=== PATIENT | female | born 1970 | race Caucasian/White ===

== ENCOUNTER 2021-05-14 22:57 | Emergency (ER) | payer OTHER ==
[~2021-05-14] VITALS: Ht 175.3 cm; Wt 112.4 kg
[2021-05-14 23:12] VITALS: BP 139/80
--- NOTE | 2021-05-14 23:38 | PHYS DOC ---
Past History Additional Past Medical Histor: HNPP Past Surgical History: Hysterectomy, Other Additional Past Surgical Histo: BLADDER REPAIR; VAG RECTOCELE; LUMBAR DISECTOMY Adult General Chief Complaint Chief Complaint: DENTAL PROBLEM HPI HPI Patient is a 50-year-old female presenting for dental pain. She had root canal performed 48 hours ago at dentist office. She had uncontrolled pain and was seen the following day for this, she had a nerve block and further work done at that time but was never prescribed anything. She reports taking Tylenol only for pain since dentist discharge but reports pain has been unbearable prompting her to come in for evaluation today. She is concerned of active infection and concerned she was never given any antibiotic given her recent dental work. She has numerous comorbid conditions such as diabetes, GERD, obesity but denies any cardiovascular history. States her reason why she has not been taking ibuprofen as she just does not have any at home. Review of Systems Review of Systems Fourteen body systems of review of systems have been reviewed. See HPI for pertinent positives and negative responses, other bailey all other systems are negative, non-pertinent or non-contributory Allergies Allergies Allergies Coded Allergies Type Severity Reaction Last Updated Verified fluoxetine Allergy Severe suicidal 05/14/21 Yes apremilast Allergy Intermediate 05/14/21 Yes bupropion Allergy Mild hives 05/14/21 Yes Penicillins Allergy Unknown 05/14/21 Yes adalimumab Allergy Unknown 05/14/21 Yes azithromycin Allergy Unknown hives 05/14/21 Yes dulaglutide Allergy Unknown 05/14/21 Yes escitalopram Allergy Unknown 05/14/21 Yes gabapentin Allergy Unknown 05/14/21 Yes Physical Exam Physical Exam Constitutional: Well developed, well nourished, no acute distress, non-toxic appearance. HENT: Normocephalic, atraumatic, bilateral external ears normal, oropharynx moist, no oral exudates, nose normal. Poor dentition globally with numerous dental caries that appear chronic with several cavities, no abscess, well- appearing recent root canal present to tooth #4 Eyes: PERRLA, EOMI, conjunctiva normal, no discharge. Neck: Normal range of motion, no tenderness, supple, no stridor. Cardiovascular: Heart rate regular, sinus rhythm, no murmurs rubs or gallops Lungs & Thorax: Bilateral breath sounds clear to auscultation Abdomen: Bowel sounds normal, soft, no tenderness, no masses, no pulsatile masses. Nonsurgical abdomen, no peritoneal signs Skin: Warm, dry, no erythema, no rash. Back: No tenderness, no CVA tenderness. Extremities: No tenderness, no cyanosis, no clubbing, ROM intact, no edema. Neurologic: Alert and oriented X 3, grossly normal motor & sensory function, no focal deficits noted. Psychologic: Affect normal, judgement normal, mood normal. Current Patient Data Vital Signs Vital Signs Date Time Temp Pulse Resp B/P (MAP) Pulse Ox O2 Delivery O2 Flow Rate FiO2 05/14/21 23:12 98.7 104 22 139/80 (99) 96 Room Air EKG EKG [] Radiology/Procedures Radiology/Procedures [] Heart Score C/O Chest Pain: No Risk Factors: Risk Factors: DM, Current or recent (<one month) smoker, HTN, HLP, family history of CAD, obesity. Risk Scores: Risk Factors: DM, Current or recent (<one month) smoker, HTN, HLP, family history of CAD, obesity. Course & Med Decision Making Course & Med Decision Making ABCs unremarkable HPI and physical exam nonconcerning for any emergent or surgical issues. No indication for antibiotics as there is no acute infection Patient dealing with uncontrolled pain. She has been using Tylenol only. She has not been using ibuprofen. Joint decision made to administer x1 [place] while here in ER with instructions for Tylenol and ibuprofen use and close dentist follow-up Strict return precautions discussed with good understanding by patient, all questions and concerns addressed prior to ER departure Oumar Disclaimer Oumar Disclaimer This electronic medical record was generated, in whole or in part, using a voice recognition dictation system. Departure Departure: Impression: Primary Impression: Dentalgia Disposition: HOME / SELF CARE / HOMELESS Condition: STABLE Referrals: CECELIA SIERRA DO (PCP) Additional Instructions: You were seen for dental pain. There does not appear to be any infection at this time. Take Ibuprofen (600-800mg) and Tylenol (500-650mg) alternating every 4-6 hours to help with inflammation and pain while you contact a dentist for further care. You should return to the ED if you develop worsening pain, fever > 101, swelling, redness, or any other new or concerning symptoms. Unfortunately, your pain is not likely to improve without seeing a dentist for further evaluation and treatment of your poor dentition and dental caries. REYNA SEXTON DO May 14, 2021 23:37
[2021-05-14] MEDS: HYDROcodone/APAP 5/325MG 1 TAB TABLET PO ONE (23:39)
== END 2021-05-14 23:44 | disposition home or self-care (01) ==
LOC: ER 22:57
DX: K08.89 Other specified disorders of teeth and supporting structures (principal); Z88.0 Allergy status to penicillin; Z88.1 Allergy status to other antibiotic agents; Z90.710 Acquired absence of both cervix and uterus
CPT/HCPCS: 99283-25